=== PATIENT | male | born 1970 | race Caucasian/White ===

== ENCOUNTER 2019-10-01 14:43 | Emergency (ER) | payer SELFPAY ==
[~2019-10-01] VITALS: Ht 170.1 cm; Wt 95.3 kg
[~2019-10-01 14:43] MED LIST: VICODIN 5/500 505 MG PO
[2019-10-01] MEDS ORDERED: BACITRAYCIN PLU28 GM T (17:22)
[2019-10-01] MEDS ORDERED: SILVADENE,SSD C50 GM PO (17:22)
[2019-10-01] MEDS ORDERED: NORCO 5-325 TA1 EACH PO (17:22)
[2019-10-01] MEDS ORDERED: SEPTDS PO (17:22)
== END 2019-10-01 17:39 | disposition home or self-care (01) ==
LOC: ED 14:43
DX: T24.202A Burn of second degree of unspecified site of left lower limb, except ankle and foot, initial encounter (principal); Z88.1 Allergy status to other antibiotic agents; X12.XXXA Contact with other hot fluids, initial encounter; Y93.89 Activity, other specified; Y92.89 Other specified places as the place of occurrence of the external cause; Y99.8 Other external cause status

== ENCOUNTER 2021-08-14 18:11 | Inpatient (IN) | payer SELFPAY ==
[2021-08-14] VITALS: BP 105/47
[~2021-08-14] VITALS: Ht 170.2 cm; Wt 102.3 kg
[~2021-08-14 18:11] MED LIST changes: +BACITRAYCIN PLU28 GM T; +NORCO 5-325 TA1 EACH PO; +SEPTDS PO; +SILVADENE,SSD C50 GM PO
[2021-08-14 18:17] VITALS: BP 170/85
[2021-08-14 20:00] VITALS: BP 105/47
[2021-08-14 23:13] VITALS: BP 142/88
[2021-08-15] VITALS (12 sets, daily range): BP systolic 105–167; BP diastolic 47–93
[2021-08-15 06:35] LABS: BASO # 0.1 10*3/uL (0.0-0.1); BASO % 0.6 % (0.0-1.0); EOS % 0.2 % (1.0-4.0); HEMATOCRIT 39.7 % (42.0-52.0); LYMPH # 0.9 10*3/uL (1.3-4.4); LYMPH % 11.4 % (27.0-41.0); MEAN CELL VOLUME 94.5 fl (80.0-94.0); MEAN CORPUSCULAR HGB 32.6 pg (27.0-31.0); MEAN CORPUSCULAR HGB CONC 34.5 g/dl (33.0-37.0); MEAN PLATELET VOLUME 9.8 fl (9.6-12.3); MONO # 1.1 10*3/uL (0.1-1.0); MONO % 12.8 % (3.0-9.0); NEUT # 6.2 10*3/uL (2.3-7.9); NEUT % 74.8 % (47.0-73.0); PLATELET COUNT AUTOMATED 186 10*3/uL (130-400); RED CELL DISTRI WIDTH 11.3 % (0-14.5); WHITE BLOOD COUNT 8.3 10*3/uL (4.8-10.8)
[2021-08-15 06:48] LABS: CHLORIDE 105 mmol/L (98-107); POTASSIUM 4.4 mmol/L (3.5-5.1); SODIUM 134 mmol/L (136-145)
[2021-08-15 06:57] LABS: ALBUMIN 3.7 gm/dl (3.1-4.5); ALKALINE PHOSPHATASE 65 U/L (45-117); BUN 9 mg/dl (7-24); CHOLESTEROL 146 mg/dL (<200); CREATININE 0.93 mg/dL (0.70-1.30); FREE T4 0.88 ng/dl (0.76-1.46); LDL CHOLESTEROL 67 mg/dL (9-159); SGOT/AST 21 IU/L (3-35); SGPT/ALT 31 U/L (12-78); TOTAL PROTEIN 7.2 gm/dL (6.4-8.2); TRIGLYCERIDES 58 mg/dl (<150)
[2021-08-15 08:52] LABS: VITAMIN D, 25-HYDROXY 17.4 ng/mL (30-100)
[2021-08-15] MEDS ORDERED: XARELTO10 MG PO ×2 (14:39→14:42)
[2021-08-15] MEDS ORDERED: TRAMADOL HCL50 MG PO (14:44)
[2021-08-15] MEDS ORDERED: VIBRA-TAB100 MG PO (14:47)
[2021-08-16] VITALS: BP 105/47
[2021-08-16 06:34] LABS: BASO % 0.3 % (0.0-1.0); HEMATOCRIT 35.7 % (42.0-52.0); LYMPH % 9.4 % (27.0-41.0); MEAN CELL VOLUME 95.5 fl (80.0-94.0); MEAN CORPUSCULAR HGB 33.4 pg (27.0-31.0); MONO # 1.5 10*3/uL (0.1-1.0); MONO % 13.4 % (3.0-9.0); NEUT # 8.3 10*3/uL (2.3-7.9); NEUT % 76.5 % (47.0-73.0); PLATELET COUNT AUTOMATED 164 10*3/uL (130-400); RED BLOOD COUNT 3.74 10*6/uL (4.50-5.90); RED CELL DISTRI WIDTH 11.7 % (0-14.5); WHITE BLOOD COUNT 10.9 10*3/uL (4.8-10.8)
[2021-08-16 06:46] LABS: BUN 11 mg/dl (7-24); CHLORIDE 108 mmol/L (98-107); POTASSIUM 4.2 mmol/L (3.5-5.1); SODIUM 140 mmol/L (136-145)
[2021-08-16 08:00] VITALS: BP 103/69
[2021-08-16 12:00] VITALS: BP 115/65
[2021-08-16] MEDS ORDERED: VITAMIN D350 MC2 PO (14:07)
[2021-08-16 16:00] VITALS: BP 119/73
== END 2021-08-16 18:22 | disposition home or self-care (01) | DRG 493 ==
LOC: ED 18:11 → 5E 22:17 → EDHOLD 22:17 → 5E 08-15 13:47
PROVIDERS: Internal Medicine; ADMIT Internal Medicine; ATTEND Internal Medicine
PROC: 0QSK04Z Reposition Left Fibula with Internal Fixation Device, Open Approach (ICD-10-PCS; principal; 2021-08-15)
PROC: 0QSH04Z Reposition Left Tibia with Internal Fixation Device, Open Approach (ICD-10-PCS; 2021-08-15)
DX: S82.852A Displaced trimalleolar fracture of left lower leg, initial encounter for closed fracture (principal); E87.1 Hypo-osmolality and hyponatremia; R26.2 Difficulty in walking, not elsewhere classified; F17.210 Nicotine dependence, cigarettes, uncomplicated; D75.89 Other specified diseases of blood and blood-forming organs; R73.9 Hyperglycemia, unspecified; E55.9 Vitamin D deficiency, unspecified; Z81.8 Family history of other mental and behavioral disorders; Z88.1 Allergy status to other antibiotic agents; Z71.6 Tobacco abuse counseling; W55.12XA Struck by horse, initial encounter; Y93.89 Activity, other specified; Y92.89 Other specified places as the place of occurrence of the external cause; Y99.8 Other external cause status